=== PATIENT | female | born 1970 | race African-American/Black ===

== ENCOUNTER 2019-11-30 21:00 | Inpatient (IN) | payer SELFPAY ==
[~2019-11-30 21:00] MED LIST: Iopamidol 370 76% 100 ML VIAL ONE
[2019-11-30 22:00] LABS: Bacteria/HPF 2+ HPF (None Seen); Bilirubin Negative (Negative); Blood, Urine 2+ (Negative); Clarity Turbid (Clear); Glucose, Urine (Dipstick) Normal (Negative); Ketone, Urine Negative (Negative); Leukocyte 500 Leu/uL (Negative); Nitrite Negative (Negative); Pregnancy Test - Urine (BHCG) Negative (Negative); Pregu Control Background? CLEAR/WHITE (CLR/WHITE); Pregu Control Bar Appear? YES (CONTROL BAR); Protein, Urine (Dipstick) 20 mg/dL (Neg-Trace); Specific Gravity 1.008 (1.002-1.036); Specific Gravity, Urine 1.008 (1.002-1.036); Squamous Epithelial 0-3 HPF (0-3); Urobilinogen Normal mg/dL (Less than 2); WBC/HPF Greater than 50 HPF (0-3); pH, Urine 5.5 (5.0-9.0)
[2019-11-30] MEDS ORDERED: cefTRIAXone\\ROCEPHIN 1 GM VIAL ONE (22:14)
[2019-11-30] MEDS ORDERED: Morphine 4 MG/ML VIAL ONE (22:14)
[2019-11-30 22:26] LABS: #Lymphocytes 0.9 thou/uL (1.20-3.40); #Monocytes 1.9 thou/uL (0.11-0.59); #Neutrophils 13.2 thou/uL (1.40-6.50); %Basophils 0.1 % (0.0-1.0); %Eosinophils 0.1 % (0.0-10.0); %Lymphocytes 5.3 % (21.0-51.0); %Monocytes 11.7 % (0.0-10.0); %Neutrophils 82.7 % (42.0-75.0); Hemoglobin 15.3 g/dL (12.0-16.0); Mean Corpuscular HGB CONC 32.1 g/dL (32.0-36.0); Mean Corpuscular Hemoglobin 30.1 pg (27.0-31.0); Mean Corpuscular Volume 93.6 fL (78.0-98.0); Mean Platelet Volume 8.4 fL (7.4-10.4); Platelet Count 170 thou/uL (130-400); RBC Distribution Width 13.4 % (11.5-14.5); Red Blood Cell (RBC) Count 5.09 mill/uL (4.20-5.40)
[2019-11-30] MEDS ORDERED: Acetaminophen 500 MG TAB ONE (22:36)
[2019-11-30 22:51] LABS: ALT (SGPT) Less than 7 U/L (8-55); AST (SGOT) 14 U/L (5-34); Albumin 3.8 g/dL (3.5-5.0); Alkaline Phosphatase 67 U/L (40-110); Anion Gap 17 mmol/L (10-20); BUN (Urea Nitrogen) 9 mg/dL (7.0-18.7); Bilirubin, Total 0.8 mg/dL (0.2-1.2); Calc. Creatinine Clearance 0 mL/min (70-130); Calcium 9.2 mg/dL (7.8-10.44); Carbon Dioxide 16 mmol/L (22-29); Chloride 104 mmol/L (98-107); Estimated GFR-MDRD 50; Globulin 3.5 g/dL (2.4-3.5); Glucose 120 mg/dL (70-105); Lipase 10 U/L (8-78); Magnesium 1.4 mg/dL (1.6-2.6); Potassium 3.9 mmol/L (3.5-5.1); Protein, Total 7.3 g/dL (6.0-8.3); Sodium 133 mmol/L (136-145)
--- NOTE | 2019-11-30 23:12 | CT ---
CT ABDOMEN WITH CONTRAST CT PELVIS WITH CONTRAST: DATE: 11/30/2019 10:56 PM HISTORY: 49-year-old female with UTI, urinary frequency, dysuria, hematuria, with right lower quadrant abdomin al pain COMPARISON: None TECHNIQUE: IV injection of iodinated contrast media: administered. Oral contrast media:Not administered FINDINGS: Diffuse, mild mural thickening of urinary bladder. There are 2 small wedge-shaped regions of decreased nephrographic enhancement of right renal cortex, one at upper pole laterally and one at lower pole, suspicious for 2 foci of pyelonephritis. Mild right perirenal edema. No abscess No hydronephrosis. Left kidney, abdominal aorta, adrenals, pancreas, spleen, and appendix, are normal. Slightly heterogeneous enhancement pattern of liver suggestive of possible venous congestion. Tiny fo faustino subcentimeter hypodensity in subcapsular location at dome of right lobe of liver, too small to characterize. Perhaps tiny cyst. Small amount of free fluid within the dependent portion of the pelvic cavity. Mild edema in the right lower quadrant peritoneal cavity at pelvic inlet. Fluid-filled small bowel loops with air-fluid levels, alternating with collapsed small bowel loops. No pneumoperitoneum. Lung bases are grossly clear. IMPRESSION: 1) evidence for right-sided pyelonephritis 2) questionable for mild acute cystitis 3) questionable for gastroenteritis. 4) possible hepatic venous congestion
[2019-11-30] MEDS ORDERED: Vancomycin 1 GM/200 ML BAG ONE (23:39)
[2019-12-01] MEDS ORDERED: Morphine 2 MG/ML VIAL SLOW IVP SCH (01:15)
[2019-12-01] MEDS ORDERED: Acetaminophen 325 MG TAB PO PRN (01:23)
[2019-12-01 01:29] VITALS: BMI 27.4
--- NOTE | 2019-12-01 01:33 | PDOC.HHP ---
Hospitalist HPI - History of Present Illness flank pain History of Present Illness: Billy is a 49-year-old female with past medical history of hypertension who presents for pelvic and flank pain. Patient reports that her symptoms of dysuria increased urinary frequency and hematuria started 3 days ago, and that her lower abdominal and left flank pain developed yesterday. This morning patient reports she became incontinent of urine, as well as noticed blood in her urine. She has a history of a single UTI that was treated as an outpatient. Denies fevers, night sweats, chills. Denies nausea, vomiting, diarrhea. No chest pain, shortness of breath. In the ED initial vital signs 176/108, 110, 20, 99.6, 99% on room air. Work-up included CT abdomen pelvis which showed right-sided pyelonephritis and acute cystitis. UA grossly positive. Sodium 133, potassium 3.9. BUN/CR 9/1.15. Lipase 10. WBC 16.0, H/H 15.3/47.7. Magnesium 1.4, lactic acid 2.4. Patient received ceftriaxone, vancomycin IV as well as 1 L of IV fluids. Hospitalist ROS - Review of Systems Constitutional: denies: fever, chills, sweats, weakness, malaise, other Eyes: denies: pain, vision change, conjunctivae inflammation, eyelid inflammation, redness, other ENT: denies: ear pain, ear discharge, nose pain, nose discharge, nose congestion , mouth pain, mouth swelling, throat pain, throat swelling, other Respiratory: denies: cough, dry, shortness of breath, hemoptysis, SOB with excertion, pleuritic pain, sputum, wheezing, other Cardiovascular: denies: chest pain, palpitations, orthopnea, paroxysmal noc. dyspnea, edema, light headedness, other Gastrointestinal: reports: abdominal pain. denies: nausea, vomiting, diarrhea, constipation, melena, hematochezia, other Genitourinary: reports: dysuria, frequency, incontinence, hematuria, retention. denies: other Musculoskeletal: reports: back pain. denies: neck pain, shoulder pain, arm pain , hand pain, leg pain, foot pain, other Skin: denies: rash, lesions, sridevi, bruising, other Neurological: denies: weakness, numbness, incoordination, change in speech, confusion, seizures, other - Medication Medications: Work-up in the ED included a CT abdomen pelvis Home medications: Amlodipine 10 mg No known drug allergies Hospitalist History - Past Medical History Cardiac: reports: HTN - Past Surgical History Past Surgical History: reports: Hysterectomy - Social History Smoking Status: Current every day smoker Tobacco Type: cigarettes Alcohol: reports: Rare Drugs: reports: marijuana Living Situation: With Family Activity level: independent ambulation - Exam General Appearance: NAD, awake alert Eye: PERRL, anicteric sclera ENT: normocephalic atraumatic, no oropharyngeal lesions, moist mucosa Neck: supple, symmetric, no JVD, no thyromegaly, no lymphadenopathy, no carotid bruit Heart: no murmur, no gallops, no rubs, normal peripheral pulses Heart - other findings: Tachycardia Respiratory: CTAB, no wheezes, no rales, no ronchi, normal chest expansion, no tachypnea, normal percussion Gastrointestinal: non-distended, normal bowel sounds, no palpable masses, no hepatomegaly, tender to palpation Gastrointestinal - other findings: Bilateral CVA tenderness R>L Extremities: no cyanosis, no clubbing, no edema Skin: normal turgor, no lesions, no rashes Neurological: cranial nerve grossly intact, normal sensation to touch, no weakness, no focal deficits, no new deficit Musculoskeletal: normal tone, normal strength, no muscle wasting Psychiatric: normal affect, normal behavior, A&O x 3 Hospitalist Results - Labs Result Diagrams: 11/30/19 22:11 11/30/19 22:11 Lab results: WBC 16.0 thou/uL (4.8-10.8) H 11/30/19 22:11 Hgb 15.3 g/dL (12.0-16.0) 11/30/19 22:11 Hct 47.7 % (36.0-47.0) H 11/30/19 22:11 MCV 93.6 fL (78.0-98.0) 11/30/19 22:11 Plt Count 170 thou/uL (130-400) 11/30/19 22:11 Neutrophils % 82.7 % (42.0-75.0) H 11/30/19 22:11 Sodium 133 mmol/L (136-145) L 11/30/19 22:11 Potassium 3.9 mmol/L (3.5-5.1) 11/30/19 22:11 Chloride 104 mmol/L (98-107) 11/30/19 22:11 Carbon Dioxide 16 mmol/L (22-29) L 11/30/19 22:11 BUN 9 mg/dL (7.0-18.7) 11/30/19 22:11 Creatinine 1.15 mg/dL (0.6-1.1) H 11/30/19 22:11 Glucose 120 mg/dL (70-105) H 11/30/19 22:11 Lactic Acid 2.4 mmol/L (0.5-2.2) H 11/30/19 23:06 Calcium 9.2 mg/dL (7.8-10.44) 11/30/19 22:11 Total Bilirubin 0.8 mg/dL (0.2-1.2) 11/30/19 22:11 AST 14 U/L (5-34) 11/30/19 22:11 ALT Less than 7 U/L (8-55) L 11/30/19 22:11 Alkaline Phosphatase 67 U/L (40-110) 11/30/19 22:11 Serum Total Protein 7.3 g/dL (6.0-8.3) 11/30/19 22:11 Albumin 3.8 g/dL (3.5-5.0) 11/30/19 22:11 Lipase 10 U/L (8-78) 11/30/19 22:11 Urine Ketones Negative mg/dL (Negative) 11/30/19 21:27 Urine Blood 2+ (Negative) A 11/30/19 21:27 Urine Nitrite Negative (Negative) 11/30/19 21:27 Ur Leukocyte Esterase 500 River/uL (Negative) A 11/30/19 21:27 Urine RBC 7-10 HPF (0-3) A 11/30/19 21: Urine WBC Greater than 50 HPF (0-3) A 11/30/19 21:27 Ur Squamous Epith Cells 0-3 HPF (0-3) 11/30/19 21:27 Urine Bacteria 2+ HPF (None Seen) A 11/30/19 21:27 Hospitalist H&P A/P - Problem (1) Sepsis Code(s): A41.9 - SEPSIS, UNSPECIFIED ORGANISM Status: Acute (2) Pyelonephritis Code(s): N12 - TUBULO-INTERSTITIAL NEPHRITIS, NOT SPCF ACUTE OR CHRONIC Status: Acute (3) Hypertension Code(s): I10 - ESSENTIAL (PRIMARY) HYPERTENSION Status: Acute (4) Hypomagnesemia Code(s): E83.42 - HYPOMAGNESEMIA Status: Acute - Plan Plan: Pyelonephritis: 49-year-old female with past history hypertension presents with 3-day onset of dysuria, hematuria, abdominal/flank pain found to have grossly positive urinalysis, and CT abdomen pelvis which showed pyelonephritis and acute cystitis. Afebrile, WBC 16.0. BUN/CR 9/1.15. Initiated on IV ceftriaxone, and vancomycin. Plan: -Continue IV ceftriaxone, vancomycin -Urine cultures pending -IV fluids -Monitor electrolytes Sepsis without septic shock: Patient presented in sepsis secondary to pyelonephritis with tachycardia to 110 and elevated WBC to 16.0. Lactic acid elevated to 2.4. Blood pressure 151/107 . Started on broad-spectrum antibiotics ceftriaxone, vancomycin in the ED as well as IV fluid boluses. Plan: -Trend white count, fever curve, lactic acid -Continue IV ceftriaxone, vancomycin -Blood cultures pending -IVF Hypomagnesemia: Magnesium 1.4 on admission. Likely secondary to decreased p.o. intake. Plan: -Monitor and replete as needed Hypertension: -Hold home amlodipine in setting of sepsis DVT prophylaxis: SQ heparin Full code Case discussed with attending physician Dr. Hi.
[2019-12-01] MEDS: Lactated Ringer's 1,000 ML IV SCH ×5 (01:58→23:40)
[2019-12-01 02:05] LABS: Hemoglobin 13.9 g/dL (12.0-16.0); Mean Corpuscular HGB CONC 33.5 g/dL (32.0-36.0); Mean Corpuscular Hemoglobin 31.2 pg (27.0-31.0); Mean Platelet Volume 8.2 fL (7.4-10.4); Platelet Count 164 thou/uL (130-400); RBC Distribution Width 13.2 % (11.5-14.5); Red Blood Cell (RBC) Count 4.45 mill/uL (4.20-5.40); White Blood Cell (WBC) Count 14.5 thou/uL (4.8-10.8)
[2019-12-01 02:06] LABS: #Monocytes 1.1 thou/uL (0.11-0.59); #Neutrophils 12.4 thou/uL (1.40-6.50); %Basophils 0.3 % (0.0-1.0); %Eosinophils 0.2 % (0.0-10.0); %Monocytes 7.5 % (0.0-10.0)
[2019-12-01 02:19] LABS: Lactic Acid 1.6 mmol/L (0.5-2.2)
[2019-12-01 02:39] LABS: Anion Gap 14 mmol/L (10-20); BUN (Urea Nitrogen) 8 mg/dL (7.0-18.7); Calc. Creatinine Clearance 83 mL/min (70-130); Calcium 8.4 mg/dL (7.8-10.44); Carbon Dioxide 19 mmol/L (22-29); Chloride 104 mmol/L (98-107); Estimated GFR-MDRD 68; Glucose 110 mg/dL (70-105); Potassium 3.5 mmol/L (3.5-5.1); Sodium 133 mmol/L (136-145)
[2019-12-01] MEDS ORDERED: Magnesium 2 GM/50 ML 2 GM in Premix Bag 1 BAG IVPB SCH (04:45)
[2019-12-01] MEDS: Vancomycin HCl 1.25 GM in Sodium Chloride 0.9% 250 ML 250 ML IVPB SCH ×2 (08:32→21:36)
[2019-12-01] MEDS: Heparin 5,000 UNITS/ML VIAL SC SCH ×3 (08:32→21:36)
[2019-12-01] MEDS ORDERED: Vancomycin 1 GM in Premix Bag 1 BAG IVPB SCH (12:00)
[2019-12-01] MEDS: Morphine 4 MG/ML VIAL SLOW IVP PRN ×2 (12:40→23:50)
--- NOTE | 2019-12-01 16:07 | PDOC.HOSPP ---
- Subjective Encounter Date: 12/01/19 Encounter Time: 16:00 Subjective: f/u for R-sided pyelonephritis/sepsis tx with Rocephin/Vancomycin/IVF's/ Morphine sulfate. States feeling better this pm. Less flank pain. - Objective Vital Signs & Weight: Vital Signs (12 hours) Temp Pulse Resp BP Pulse Ox 12/01/19 12:04 81 18 132/79 12/01/19 09:00 96.9 F L 83 18 121/77 12/01/19 04:26 98.5 F 83 16 140/83 98 Weight Weight 175 lb 8 oz Result Diagrams: 12/01/19 01:53 12/01/19 01:53 Additional Labs: Microbiology 11/30/19 22:39 Venous blood - Left Hand Blood Culture - Preliminary Specimen has been received and culture in progress. No Growth to date. 11/30/19 22:31 Venous blood - Right Arm Blood Culture - Preliminary Specimen has been received and culture in progress. No Growth to date. 11/30/19 21:27 Urine voided Urine Culture - Preliminary Presumptive Escherichia coli Laboratory Tests 11/30/19 11/30/19 11/30/19 21:27 22:11 22:11 WBC 16.0 H Neutrophils % 82.7 H Sodium 133 L Carbon Dioxide 16 L Creatinine 1.15 H Lactic Acid Urine Test Negative 11/30/19 12/01/19 12/01/19 23:06 01:53 01:53 WBC Neutrophils % 85.0 H Sodium Carbon Dioxide Creatinine Lactic Acid 2.4 H 1.6 Urine Test 12/01/19 04:44 WBC Neutrophils % Sodium Carbon Dioxide Creatinine Lactic Acid 1.0 Urine Test Radiology Reviewed by me: Yes (CT abd/pel - R-sided pyelonephritis, cystitis) EKG Reviewed by me: Yes (Tele - SR) Hospitalist ROS - Medication Medications: Active Medications Generic Name Dose Route Start Last Admin Trade Name Freq PRN Reason Stop Dose Admin Acetaminophen 650 mg 12/01/19 01:23 12/01/19 06:05 Tylenol PO 650 mg Q4H PRN Administration Headache/Fever/Mild Pain (1-3) Heparin Sodium (Porcine) 5,000 units 12/01/19 09:00 12/01/19 15:18 Heparin SC 5,000 units TID ESPERANZA Administration Vancomycin HCl 1.25 gm/ Sodium 250 mls @ 166.667 mls/hr 12/01/19 09:00 08:32 Chloride IVPB 250 mls Q12HR ESPERANZA Administration Morphine Sulfate 4 mg 12/01/19 12:34 12/01/19 12:40 Morphine SLOW IVP 4 mg Q4H PRN Administration Moderate to Severe Pain (6-10) - Exam General Appearance: NAD, awake alert Eye: PERRL, anicteric sclera ENT: normocephalic atraumatic, no oropharyngeal lesions Neck: supple, symmetric, no JVD, no thyromegaly, no lymphadenopathy Heart: RRR, no murmur, no gallops, no rubs, normal peripheral pulses Heart - other findings: S1, S2 Respiratory: CTAB, no wheezes, no rales, no ronchi, normal chest expansion Gastrointestinal: soft, non-distended, normal bowel sounds, no palpable masses Gastrointestinal - other findings: R CVA tenderness Extremities: no cyanosis, no clubbing, no edema Skin: normal turgor, no lesions Neurological: cranial nerve grossly intact, no new deficit Musculoskeletal: normal tone, normal strength, no muscle wasting Psychiatric: normal affect, A&O x 3 Hosp A/P (1) Sepsis Code(s): A41.9 - SEPSIS, UNSPECIFIED ORGANISM Status: Acute Qualifiers: Sepsis type: Escherichia coli Severe sepsis acute organ dysfunction type: acute renal failure Plan: Continue Rocephin/Vancomycin, continue IVF's (2) Pyelonephritis Code(s): N12 - TUBULO-INTERSTITIAL NEPHRITIS, NOT SPCF ACUTE OR CHRONIC Status: Acute Plan: R-sided involvement, see #1, await final Ucx results (3) ELSY (acute kidney injury) Code(s): N17.9 - ACUTE KIDNEY FAILURE, UNSPECIFIED Status: Acute Plan: Continue IVF's, avoid nephrotoxic meds and limit contrast exposure (4) Hypertension Code(s): I10 - ESSENTIAL (PRIMARY) HYPERTENSION Status: Chronic Qualifiers: Hypertension type: essential hypertension Qualified Code(s): I10 - Essential (primary) hypertension Plan: Resume home BP regimen, serial BP monitoring (5) Hypomagnesemia Code(s): E83.42 - HYPOMAGNESEMIA Status: Acute Plan: Repeat Mg++ in am - Plan continue antibiotics, out of bed/ambulate, DVT proph w/SCDs Stable currently Continue Rocephin/Vancomycin pending final Ucx results Decrease IVF's 125ml/h Pain control with Morphine Sulfate AM lab: BMP, CBC, Mg++
[2019-12-01] MEDS ORDERED: cefTRIAXone\\ROCEPHIN 1 GM in Sodium Chloride 0.9% 100 ML IVPB SCH (22:00)
[2019-12-01] MEDS ORDERED: cefTRIAXone\\ROCEPHIN 2 GM in Sodium Chloride 0.9% 100 ML IVPB SCH (22:00)
[2019-12-02 04:44] LABS: Anion Gap 12 mmol/L (10-20); BUN (Urea Nitrogen) 7 mg/dL (7.0-18.7); Calc. Creatinine Clearance 82 mL/min (70-130); Calcium 8.1 mg/dL (7.8-10.44); Carbon Dioxide 21 mmol/L (22-29); Chloride 103 mmol/L (98-107); Estimated GFR-MDRD 68; Glucose 89 mg/dL (70-105); Magnesium 1.7 mg/dL (1.6-2.6); Potassium 3.3 mmol/L (3.5-5.1); Sodium 133 mmol/L (136-145)
[2019-12-02 05:19] LABS: Band 5 % (5-11); Hemoglobin 12.8 g/dL (12.0-16.0); Lymphocytes 11 % (21-51); MDiff Complete? YES; Mean Corpuscular HGB CONC 32.6 g/dL (32.0-36.0); Mean Corpuscular Hemoglobin 30.2 pg (27.0-31.0); Mean Corpuscular Volume 92.5 fL (78.0-98.0); Mean Platelet Volume 9.3 fL (7.4-10.4); Monocytes 15 % (0-10); Neutrophil 69 % (42-75); Platelet Count 151 thou/uL (130-400); RBC Distribution Width 13.1 % (11.5-14.5); Red Blood Cell (RBC) Count 4.25 mill/uL (4.20-5.40); White Blood Cell (WBC) Count 14.2 thou/uL (4.8-10.8)
[2019-12-02] MEDS ORDERED: Amlodipine 10 MG TAB PO SCH (09:00)
[2019-12-02] MEDS ORDERED: Citalopram 20 MG TAB PO SCH (09:00)
[2019-12-02] MEDS: Lactated Ringer's 1,000 ML IV SCH (09:14)
[2019-12-02] MEDS: Vancomycin HCl 1.25 GM in Sodium Chloride 0.9% 250 ML 250 ML IVPB SCH (09:14)
[2019-12-02] MEDS: Heparin 5,000 UNITS/ML VIAL SC SCH (09:15)
[2019-12-02 11:39] VITALS: BP 130/90; TEMP 98.4
--- NOTE | 2019-12-02 23:51 | DIS ---
DATE OF ADMISSION: 12/01/2019 DATE OF DISCHARGE: 12/02/2019 DISCHARGE DIAGNOSES: 1. Sepsis secondarily to #2, resolving. 2. Right-sided pyelonephritis with Escherichia coli species. 3. Acute kidney injury, resolving. 4. Hypertension, stable. 5. Hypomagnesemia, resolved. CONSULTATIONS: None. PERTINENT LABORATORY AND X-RAY FINDINGS: Sodium 133, creatinine ranged between 1.04 to 1.15, estimated GFR ranged between 50 to 68. Lactic acid level ranged between 1.0 to 2.4, magnesium level ranged between 1.4 to 1.7. CBC showed a white blood cell count ranging between 14.2 to 16.0. Urine culture dated 11/30/2019, showed 25,000 to 50,000 colonies of E coli species pansensitive. Blood cultures x2 dated 11/30/2019, showed no growth to date. CT of the abdomen and pelvis dated 11/30/2019, showed right-sided pyelonephritis. Mild acute cystitis. HOSPITAL COURSE: The patient was admitted after presenting with sepsis criteria in the context of urinary tract infection with evidence of pyelonephritis by CT imaging of the abdomen and pelvis. The patient was treated with IV Rocephin and vancomycin with urine culture showing E coli species pansensitive. The patient received general sepsis protocol therapy including IV fluids and supportive management. The patient clinically improved with IV antibiotic therapy and IV fluid hydration with overall decreased flank pain and remaining afebrile for the remainder of the hospital course. I have examined the patient at the time of discharge and discussed followup instructions. The patient verbalizes understanding and agreement, ready for discharge on 12/02/2019. DISCHARGE MEDICATIONS: 1. Levaquin 750 mg one tablet p.o. daily x7 days. 2. Amlodipine 10 mg p.o. daily. 3. Zyrtec 10 mg p.o. daily. 4. Citalopram 20 mg p.o. daily. 5. Lisinopril/hydrochlorothiazide 20/25 mg one tablet p.o. daily. FOLLOWUP: The patient may follow up with [facility] in [place], [place]. CONDITION ON DISCHARGE: Stable. ACTIVITY: Ad-aaron. DIET: Regular. CODE STATUS: Full. DISPOSITION: To home, 12/02/2019. Job ID: [id number]
== END 2019-12-02 13:50 | disposition home or self-care (01) | DRG 872 ==
LOC: ERS 21:00 → 2NO 12-01 01:11
PROVIDERS: ADMIT Internal Medicine; ATTEND Internal Medicine
DX: A41.51 Sepsis due to Escherichia coli [E. coli] (principal); N12 Tubulo-interstitial nephritis, not specified as acute or chronic; N17.9 Acute kidney failure, unspecified; I10 Essential (primary) hypertension; E83.42 Hypomagnesemia; F17.210 Nicotine dependence, cigarettes, uncomplicated; F12.10 Cannabis abuse, uncomplicated; R65.20 Severe sepsis without septic shock; Z90.710 Acquired absence of both cervix and uterus; Z79.899 Other long term (current) drug therapy
CPT/HCPCS: 36415; 74177; 80048; 80053; 81003; 81015; 81025; 83605; 83690; 83735; 85025; 87040; 87077; 87086; 87186; J0696; J1644; J2270; J3370; J3475; J3490; J7050; Q9967